=== PATIENT | female | born 1990 | race Caucasian/White ===

== ENCOUNTER 2017-08-22 10:44 | Day surgery (SDC) | payer OTHER ==
[2017-08-22] MEDS ORDERED: BUPIVACAINE 0.5% 30 ML SDV ONE (10:46)
[2017-08-22] MEDS ORDERED: cefOXitin SODIUM 2 GM in D5W 100 ML IV ONE (11:00)
[2017-08-22] MEDS ORDERED: INDOCYANINE GREEN 25 MG VIAL IV ONE (11:00)
[2017-08-22] MEDS ORDERED: LR 1,000 ML IV ONE (11:07)
[2017-08-22] MEDS ORDERED: LIDOCAINE 1% 2 ML INJ ID PRN (11:07)
[2017-08-22 11:37] VITALS: RESP 16
--- NOTE | 2017-08-22 12:36 | PDHPUP ---
History & Physical Update H&P update statement: This history and physical update is based on an assessment of the patient which was completed after admission or registration (within 24 hours), but prior to the surgery/procedure. H&P update: H&P reviewed & patient examined, no change in patient's condition since H&P completed
[2017-08-22] MEDS ORDERED: MIDAZOLAM 2 MG/2 ML VIAL ONE ×2 (13:10→14:46)
[2017-08-22] MEDS ORDERED: fentaNYL 100 MCG/2 ML INJ ONE ×3 (13:17→15:09)
[2017-08-22] MEDS ORDERED: PROPOFOL/EMULSION 500 MG/50 ML BOTTLE IV ONE ×2 (13:17→13:46)
--- NOTE | 2017-08-22 13:54 | PDANEPAE ---
ANE Past Medical History - Cardiovascular History Hx Hypertension: No Hx Arrhythmias: No Hx Chest Pain: No Hx Coronary Artery / Peripheral Vascular Disease: No Hx CHF / Valvular Disease: No Hx Palpitations: No - Pulmonary History Hx COPD: No Hx Asthma/Reactive Airway Disease: No Hx Recent Upper Respiratory Infection: No Hx Oxygen in Use at Home: No Hx Sleep Apnea: No Sleep Apnea Screening Result - Last Documented: Negative - Neurologic History Hx Cerebrovascular Accident: No Hx Seizures: No Hx Dementia: No - Endocrine History Hx Diabetes: No - Renal History Hx Renal Disorders: Yes Renal History Comment: renal failure r/t rhabdomylosis - Liver History Hx Hepatic Disorders: No - Neurological & Psychiatric Hx Hx Neurological and Psychiatric Disorders: No - Cancer History Hx Cancer: No - Congenital Disorder History Hx Congenital Disorders: No - GI History Hx Gastrointestinal Disorders: Yes Gastrointestinal History Comment: gerd - Other Health History Other Health History: psoriasis on R ankle - Chronic Pain History Chronic Pain: Yes (left shoulder) - Surgical History Prior Surgeries: none ANE Review of Systems Review of Systems: - Exercise capacity METS (RN): 4 METS ANE Patient History - Allergies Allergies/Adverse Reactions: No Allergies [NKDA] Allergy (Verified 08/19/17 10:37) - NPO status NPO Since - Liquids (Date): 08/21/17 NPO Since - Liquids (Time): 23:00 NPO Since - Solids (Date): 08/21/17 NPO Since - Solids (Time): 19:30 - Smoking Hx Smoking Status: Heavy smoker - Family Anes Hx Family Hx Anesthesia Complications: none ANE Labs/Vital Signs - Vital Signs Blood Pressure: 120/76 Heart Rate: 80 Respiratory Rate: 16 O2 Sat (%): 96 Height: 167.64 cm Weight: 72.575 kg ANE Physical Exam - Airway Mouth exam: poor dentition, small mouth opening - Pulmonary Pulmonary: no respiratory distress, no rales or rhonchi, clear to auscultation - Cardiovascular Cardiovascular: regular rate and rhythym, no murmur, rub, or gallop - ASA Status ASA Status: III (patient was born premature and had multiple health 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
[2017-08-22] MEDS ORDERED: MEPERIDINE 25 MG/ML SYR IVP PRN (13:55)
[2017-08-22] MEDS ORDERED: METOCLOPRAMIDE 10 MG/2 ML VIAL IVP PRN (13:55)
[2017-08-22] MEDS ORDERED: ONDANSETRON 4 MG/2 ML VIAL IVP PRN (13:55)
[2017-08-22] MEDS ORDERED: ALBUTEROL 3 ML DEYVIAL IH PRN (13:55)
[2017-08-22] MEDS ORDERED: ACETAMINOPHEN 500 MG TAB PO PRN (13:55)
[2017-08-22] MEDS ORDERED: NALOXONE HCL 0.4 MG/ML INJ IVP PRN (13:55)
[2017-08-22] MEDS ORDERED: DEXAMETHASONE 4 MG/ML VIAL IVP PRN (13:55)
[2017-08-22] MEDS ORDERED: HYDROCODONE/APAP 5/325 TAB PO PRN (13:55)
[2017-08-22] MEDS ORDERED: LR 500 ML IV PRN (13:55)
[2017-08-22] MEDS ORDERED: PROMETHAZINE HCL 25 MG/ML INJ IVP PRN (13:55)
[2017-08-22] MEDS ORDERED: SUGAMMADEX SODIUM 200 MG/2 ML VIAL IVP ONE (14:09)
[2017-08-22] MEDS ORDERED: DEXAMETHASONE 4 MG/ML VIAL ONE (14:09)
[2017-08-22] MEDS ORDERED: LIDOCAINE 2% 5 ML SDV ONE (14:09)
[2017-08-22] MEDS ORDERED: RANITIDINE 50 MG/2 ML VIAL ONE (14:09)
[2017-08-22] MEDS ORDERED: ONDANSETRON 4 MG/2 ML VIAL ONE (14:09)
[2017-08-22] MEDS ORDERED: ROCURONIUM 50 MG/5 ML VIAL ONE ×2 (14:09→14:16)
[2017-08-22] MEDS ORDERED: KETOROLAC 30 MG/1 ML SDV ONE (14:09)
[2017-08-22] MEDS ORDERED: METOCLOPRAMIDE 10 MG/2 ML VIAL ONE (14:09)
--- NOTE | 2017-08-22 14:59 | POSTOPPROG ---
Post Op Note Date of Operation: 08/22/17 Surgeon: Jacoby Bernabe Studio Technician Video Operator: Tenisha Mercer Anesthesiologist: Dr. Faulkner Anesthesia: GET(General Endotracheal) Pre-op Diagnosis: symptomatic cholelithiasis Post-op Diagnosis: same, cholecystitis Procedure: SILS robotic cholecystectomy Inf/Abcess present in the surg proc area at time of surgery?: Yes Depth: Organ Space EBL: Minimal
[2017-08-22 15:04] VITALS: PULSE 77
[2017-08-22] MEDS: fentaNYL 100 MCG/2 ML INJ IVP PRN ×3 (15:12→15:34)
[2017-08-22] MEDS ORDERED: OXYCODONE/APAP 5/325 TAB ONE ×2 (15:25→17:07)
[2017-08-22 15:28] VITALS: TEMP 97.5
--- NOTE | 2017-08-22 15:30 | GOP ---
[f rep st] OPERATIVE REPORT DATE OF OPERATION: 08/22/2017 SURGEON: Ranjeet Bernabe MD STEAM TRAP MAN: Tenisha Mercer CFA, whose presence was requested by me and medically necessary for the saf e and timely completion of this case. ANESTHESIA: General endotracheal anesthesia. ANESTHESIOLOGIST: Lena Faulkner MD PREOPERATIVE DIAGNOSIS: Symptomatic cholelithiasis. POSTOPERATIVE DIAGNOSIS: Symptomatic cholelithiasis with cholecystitis. PROCEDURE PERFORMED: Single site robotic cholecystectomy. FINDINGS: The patient had stones and mild inflammation of gallbladder. No other lesions were identi fied. ESTIMATED BLOOD LOSS: 20 cc. INDICATIONS: A 27-year-old female with a history of abdominal pain. Ultrasound demonstrated gallsto ignacia. Risks and benefits of procedure discussed with the patient and her family. Their questions wer e answered and they wish to proceed. DESCRIPTION OF PROCEDURE: The patient was in the supine position. After the induction of adequate g eneral endotracheal anesthesia, the patient was prepped and draped in the standard surgical fashion. Marcaine 0.5% was injected throughout the umbilical area. A transverse incision was made through th e umbilicus and carried down to subcutaneous tissue with Bovie cautery and blunt dissection. The fas maryuri was exposed and divided vertically in the midline. The fascia was elevated, and the abdomen was carefully entered. A 2.5-cm incision was made and the single site trocar was placed carefully. Next , the camera trocar was placed into the single site trocar and the camera itself followed. The area was inspected and no damage was seen from trocar placement. At this point, the robot was moved into position. The patient was then tilted into reverse Trendelenburg and the camera port was docked. Ne xt, the procurement assistant port was placed and the curved robotic arm ports were placed. These were all place d under direct vision without incident. The robot was fully docked and the dissection proceeded robo tically. Adhesions were taken down using blunt dissection and Bovie cautery. The cystic structures were then dissected similarly. The cystic duct and cystic artery were clearly identified. In addition, the crocker bhepatic space was dissected. Once this critical view was obtained, the cystic duct and artery were clipped and divided. The gallbladder was then elevated off the liver bed using Bovie cautery and fer nt dissection. The gallbladder was grasped in the procurement assistant port. The robot itself was undocked and the patient ret urned to the neutral position. The single site port and procurement assistant trocar were removed together. The gallbladder was then extracted. The abdomen was thoroughly irrigated and aspirated. Good hemostasi s was noted. The fascia at the trocar site was then closed using 0 Vicryl in a running fashion. Wou nds were thoroughly irrigated. Skin was closed with 4-0 Monocryl in a subcuticular stitch. The woun d was then sterilely dressed. The patient was extubated and taken to PACU in stable condition. COMPLICATIONS: None. DRAINS: None. /[id number]/MODL
--- NOTE | 2017-08-22 15:30 | GOP ---
[f rep st] OPERATIVE REPORT DATE OF OPERATION: 08/22/2017 SURGEON: Ranjeet Bernabe MD ADVANCED MANUFACTURING CONSULTANT: Tenisha Mercer CFA, whose presence was requested by me and medically necessary for the saf e and timely completion of this case. ANESTHESIA: General endotracheal anesthesia. ANESTHESIOLOGIST: Lena Faulkner MD PREOPERATIVE DIAGNOSIS: Symptomatic cholelithiasis. POSTOPERATIVE DIAGNOSIS: Symptomatic cholelithiasis with cholecystitis. PROCEDURE PERFORMED: Single site robotic cholecystectomy. FINDINGS: The patient had stones and mild inflammation of gallbladder. No other lesions were identi fied. ESTIMATED BLOOD LOSS: 20 cc. INDICATIONS: A 27-year-old female with a history of abdominal pain. Ultrasound demonstrated gallsto ignacia. Risks and benefits of procedure discussed with the patient and her family. Their questions wer e answered and they wish to proceed. DESCRIPTION OF PROCEDURE: The patient was in the supine position. After the induction of adequate g eneral endotracheal anesthesia, the patient was prepped and draped in the standard surgical fashion. Marcaine 0.5% was injected throughout the umbilical area. A transverse incision was made through th e umbilicus and carried down to subcutaneous tissue with Bovie cautery and blunt dissection. The fas maryuri was exposed and divided vertically in the midline. The fascia was elevated, and the abdomen was carefully entered. A 2.5-cm incision was made and the single site trocar was placed carefully. Next , the camera trocar was placed into the single site trocar and the camera itself followed. The area was inspected and no damage was seen from trocar placement. At this point, the robot was moved into position. The patient was then tilted into reverse Trendelenburg and the camera port was docked. Ne xt, the senior agricultural assistant port was placed and the curved robotic arm ports were placed. These were all place d under direct vision without incident. The robot was fully docked and the dissection proceeded robo tically. Adhesions were taken down using blunt dissection and Bovie cautery. The cystic structures were then dissected similarly. The cystic duct and cystic artery were clearly identified. In addition, the crocker bhepatic space was dissected. Once this critical view was obtained, the cystic duct and artery were clipped and divided. The gallbladder was then elevated off the liver bed using Bovie cautery and fer nt dissection. The gallbladder was grasped in the senior agricultural assistant port. The robot itself was undocked and the patient ret urned to the neutral position. The single site port and senior agricultural assistant trocar were removed together. The gallbladder was then extracted. The abdomen was thoroughly irrigated and aspirated. Good hemostasi s was noted. The fascia at the trocar site was then closed using 0 Vicryl in a running fashion. Wou nds were thoroughly irrigated. Skin was closed with 4-0 Monocryl in a subcuticular stitch. The woun d was then sterilely dressed. The patient was extubated and taken to PACU in stable condition. COMPLICATIONS: None. DRAINS: None. /[id number]/MODL
--- NOTE | 2017-08-22 15:30 | GOP ---
[f rep st] OPERATIVE REPORT DATE OF OPERATION: 08/22/2017 SURGEON: Ranjeet Bernabe MD GAMBLING BROKER: Tenisha Mercer CFA, whose presence was requested by me and medically necessary for the saf e and timely completion of this case. ANESTHESIA: General endotracheal anesthesia. ANESTHESIOLOGIST: Lena Faulkner MD PREOPERATIVE DIAGNOSIS: Symptomatic cholelithiasis. POSTOPERATIVE DIAGNOSIS: Symptomatic cholelithiasis with cholecystitis. PROCEDURE PERFORMED: Single site robotic cholecystectomy. FINDINGS: The patient had stones and mild inflammation of gallbladder. No other lesions were identi fied. ESTIMATED BLOOD LOSS: 20 cc. INDICATIONS: A 27-year-old female with a history of abdominal pain. Ultrasound demonstrated gallsto ignacia. Risks and benefits of procedure discussed with the patient and her family. Their questions wer e answered and they wish to proceed. DESCRIPTION OF PROCEDURE: The patient was in the supine position. After the induction of adequate g eneral endotracheal anesthesia, the patient was prepped and draped in the standard surgical fashion. Marcaine 0.5% was injected throughout the umbilical area. A transverse incision was made through th e umbilicus and carried down to subcutaneous tissue with Bovie cautery and blunt dissection. The fas maryuri was exposed and divided vertically in the midline. The fascia was elevated, and the abdomen was carefully entered. A 2.5-cm incision was made and the single site trocar was placed carefully. Next , the camera trocar was placed into the single site trocar and the camera itself followed. The area was inspected and no damage was seen from trocar placement. At this point, the robot was moved into position. The patient was then tilted into reverse Trendelenburg and the camera port was docked. Ne xt, the shop assistant port was placed and the curved robotic arm ports were placed. These were all place d under direct vision without incident. The robot was fully docked and the dissection proceeded robo tically. Adhesions were taken down using blunt dissection and Bovie cautery. The cystic structures were then dissected similarly. The cystic duct and cystic artery were clearly identified. In addition, the crocker bhepatic space was dissected. Once this critical view was obtained, the cystic duct and artery were clipped and divided. The gallbladder was then elevated off the liver bed using Bovie cautery and fer nt dissection. The gallbladder was grasped in the shop assistant port. The robot itself was undocked and the patient ret urned to the neutral position. The single site port and shop assistant trocar were removed together. The gallbladder was then extracted. The abdomen was thoroughly irrigated and aspirated. Good hemostasi s was noted. The fascia at the trocar site was then closed using 0 Vicryl in a running fashion. Wou nds were thoroughly irrigated. Skin was closed with 4-0 Monocryl in a subcuticular stitch. The woun d was then sterilely dressed. The patient was extubated and taken to PACU in stable condition. COMPLICATIONS: None. DRAINS: None. /[id number]/MODL
[2017-08-22] MEDS: OXYCODONE/APAP 5/325 TAB PO PRN ×2 (15:34→17:11)
[2017-08-22 19:01] VITALS: BP 136/75; O2SAT 98
== END 2017-08-22 17:50 | disposition home or self-care (01) ==
LOC: FSGY 10:44
PROVIDERS: ATTEND Surgery
PROC: 0FT44ZZ Resection of Gallbladder, Percutaneous Endoscopic Approach (ICD-10-PCS; principal; 2017-08-22 11:45)
PROC: 8E0WXCZ Robotic Assisted Procedure of Trunk Region (ICD-10-PCS; principal; 2017-08-22 11:45)
DX: K80.10 Calculus of gallbladder with chronic cholecystitis without obstruction (principal); Z72.0 Tobacco use
CPT/HCPCS: J0694; J1100; J1885; J2250; J2405; J2704; J2765; J2780; J3010